=== PATIENT | male | born 2005 | race Hispanic/Latino ===

== ENCOUNTER 2025-10-30 10:45 | Emergency (ER) | payer SELFPAY ==
--- NOTE | 2025-10-30 10:54 | ED.SKABFB ---
HPI - Skin/Abscess/Foreign Bdy General Chief complaint: Skin/Abscess/Foreign Body Stated complaint: Rash on lower stomach Time Seen by Provider: 10/30/25 11:00 Source: patient Mode of arrival: ambulatory Limitations: no limitations History of Present Illness HPI narrative: Desmond is a 20 year old male patient presenting to the clinic today with c/o itchy rash to his pubic area that started approx 4 months ago. States has comes and gone back over the past couple months the rash has continued and now it is starting to spread to his lower left abdomen. Denies any pain to the rash, penile discharge, or testicle lesions/pain. Is and in a monogamous relationship. Has tried some Benadryl cream without relief. States the area is very itchy at this time. Related Data Allergies Allergy/AdvReac Type Severity Reaction Status Date / Time sulfamethoxazole (From Allergy Intermediate Rash Verified 10/30/25 11:19 Sulfamethoxazole-Trimethoprim) trimethoprim (From Allergy Intermediate Rash Verified 10/30/25 11:19 Sulfamethoxazole-Trimethoprim) Review of Systems Review of Systems: Pertinent positives per HPI. Patient denies any fever, chills, headache, visual changes, dizziness, cough, shortness of breath, chest pain, palpitations, nausea, vomiting, diarrhea, constipation, abdominal pain, or any urinary issues. PMFSH Comments At the time of my signature, I reviewed and agree with the nursing past medical, surgical, social, and family history. There is no relevant family history pertinent to the patient complaint. Exam Narrative: General: Well-developed, well nourished, in no apparent distress Head: Normocephalic, atraumatic. Cardio: Regular rate and rhythm, s1 and s2 normal, no murmur appreciated. Resp: Clear to auscultation bilaterally, no rhonchi, rales, wheezing or rubs. Integumentary: [place], warm, and dry, red, raised scaly appearing rash to the right pubic area- no localized redness, no satellite lesions or pustules. Rash is not around the hair follicles. Non painful and firm to palpation. Red raised papular itching hives like appearing rash to the left lower stomach. Course Course Level of Care: Express Care Visit Vital Signs Vital signs: Vital Signs Temperature 36.9 C 10/30/25 10:59 Pulse Rate 96 10/30/25 10:59 Respiratory Rate 18 10/30/25 10:59 Blood Pressure 136/63 10/30/25 10:59 Pulse Oximetry 100 10/30/25 10:59 Oxygen Delivery Room Air 10/30/25 10:59 Temperature 36.9 C 10/30/25 10:59 Pulse Rate 96 10/30/25 10:59 Respiratory Rate 18 10/30/25 10:59 Blood Pressure 136/63 10/30/25 10:59 Pulse Oximetry 100 10/30/25 10:59 Oxygen Delivery Room Air 10/30/25 10:59 MDM MDM Narrative Medical decision making narrative: At the time of visit patient is resting comfortably on the exam table. Patient appears to be nontoxic. C/o itchy rash to his pubic area that started approx 4 months ago. States has comes and gone back over the past couple months the rash has continued and now it is starting to spread to his lower left abdomen. Denies any pain to the rash, penile discharge, or testicle lesions/pain. Is and in a monogamous relationship. Has tried some benadryl cream without relief. States the area is very itchy at this time. On exam patient has red, raised scaly appearing rash to the right pubic area- no localized redness, no satellite lesions or pustules. Rash is not around the hair follicles. Non painful and firm to palpation. Red raised papular itching hives like appearing rash to the left lower stomach. Plan: I suspect patient has a dermatitis to the left pubic area with possible some hive like lesion to the left lower abdomen. Rx for triamcinolone and prednisone was sent to the pharmacy. Follow up with PCP or budget assistant and 5-7 days if symptoms persist. Supportive measures were discussed with the patient and they voiced understanding discharge instructions and agrees to treatment plan. Return precautions reviewed Differential Diagnosis Differential Diagnosis: Differential diagnostic considerations for skin/abscess/foreign body issues include abscess of skin or subcutaneous tissue, viral exanthem, dermatophytosis, urticaria, herpes zoster, allergic reaction to drug, cellulitis, eczema, insect bites, impetigo, contact dermatitis, vasculitis. Discharge Plan Discharge Clinical Impression: Dermatitis Patient Disposition: Home Condition: Stable Instructions: Antibiotic Form, Dermatitis (ED) Additional Instructions: Apply triamcinolone cream as directed Take prednisone as directed Avoid hot showers May apply Benadryl cream to the area to help alleviate itching Avoid scratching as this can cause a secondary infection May take Benadryl 25-50mg every 6 hours as needed for itching. Follow up with your PCP/budget assistant in 3-5 days if symptoms persist or sooner if they worsen Go to the Emergency Room if symptoms worsen- fever, rash spreading with treatment, groin/testicle pain, shortness of breath, tongue swelling, drooling, or chest pain Patient Language: Dominican Prescriptions: New prednisone 10 mg tablet 10 mg PO DAILY Qty: 30 0RF Rx Instructions: 60mg po daily on day 1, 40mg po daily on days 2-4, 30mg po daily on days 5-6, 20mg po daily on days 7-8, 10mg po daily on days 9-10 triamcinolone acetonide 0.1 % cream 1 applic topical BID 7 Days Qty: 30 0RF Follow-up/Referrals: PHYSICIAN NOT ON STAFF,NONSTAFF [Primary Care Provider] Time of Disposition: 11:08 Quality NIHSS Nursing Documentation ED NIHSS nursing documentation: reviewed/agree
[2025-10-30 10:59] VITALS: BP 136/63; PULSE 96; RESP 18; TEMP 36.9; O2SAT 100
== END 2025-10-30 11:15 | disposition home or self-care (01) ==
PROVIDERS: Emergency Provider Nurse Practitioner Family
DX: L30.9 Dermatitis, unspecified (principal)
CPT/HCPCS: 99203; G0463